=== PATIENT | female | born 1955 | race Caucasian/White ===

== ENCOUNTER 2019-12-18 08:22 | Outpatient (CLI) | payer MEDICARE ==
--- NOTE | 2019-12-18 10:59 | MRI ---
MRI OF THE ABDOMEN WITH AND WITHOUT CONTRAST: INDICATION: History of abnormal CT examination. COMPARISON: Prior CT the abdomen and pelvis dated December 05, 2019. TECHNIQUE: Multiplanar multisequence MR images were obtained of the abdomen utilizing a liver mass protocol. TECHNIQUE: Patient received 12 cc of MultiHance. FINDINGS: Small hypodensity within the left hepatic lobe demonstrates T2 hypointensity and T1 hypointensity wit hout appreciable enhancement consistent with a tiny cyst. No additional focal hepatic lesion is evident. Gallbladder is normal-appearing. There is a prominent cystic mass centered within the superi or margin of the pancreatic head measuring 2.5 x 1.5 cm. The cystic mass appears to communicate with the distal common bile duct, particularly on image 28 and 27 of series 13. There are some mild e nhancing internal septations. No suspicious nodular enhancement is evident. No main pancreatic ductal dilatation is evident. No lymphadenopathy is noted. The spleen is normal-appearing. No marrow signal abnormality is evident. Motion artifact limits evaluation of the coronal postcontrast series. No free fluid is identified. There is a very tiny cysts within both kidneys. IMPRESSION: 1. Multiloculated cystic abnormality in the pancreatic head appears to communicate with the distal co mmon bile duct and is suspicious for choledochal cyst. Alternatively differential considerations include a small serous cystadenoma or possibly an IPMN tumor. Would recommend consideration for ERCP to see if this truly does communicate with the distal common bile duct. 2. Small left hepatic lobe cyst. 3. Small bilateral renal cysts. Transcribed Date/Time: 12/18/2019 11:09 AM
== END 2019-12-18 08:23 | disposition home or self-care (01) ==
LOC: TBSIIMAG 08:22
PROVIDERS: ATTEND Internal Medicine Gastroenterology
DX: R16.0 Hepatomegaly, not elsewhere classified (principal); K86.89 Other specified diseases of pancreas; N28.1 Cyst of kidney, acquired; K76.89 Other specified diseases of liver
CPT/HCPCS: 74183

== ENCOUNTER 2021-05-02 10:45 | Outpatient (CLI) | payer MEDICARE ==
[2021-05-02 21:58] LABS: SARS-CoV-2 PCR by NAA Not Detected (NotDetected)
== END 2021-05-02 10:46 | disposition home or self-care (01) ==
LOC: LABBT 10:45
PROVIDERS: ATTEND Physician Assistant Medical
DX: Z01.812 Encounter for preprocedural laboratory examination (principal); K21.9 Gastro-esophageal reflux disease without esophagitis; K22.4 Dyskinesia of esophagus; K86.89 Other specified diseases of pancreas; Z20.822 Contact with and (suspected) exposure to COVID-19
CPT/HCPCS: U0003; U0005

== ENCOUNTER 2021-05-06 08:03 | Outpatient (CLI) | payer MEDICARE | END 2021-05-06 08:04 | disposition home or self-care (01) | LOC: RAD 08:03 | PROVIDERS: ATTEND Physician Assistant Medical | DX: K21.9 Gastro-esophageal reflux disease without esophagitis (principal); K22.4 Dyskinesia of esophagus; K86.89 Other specified diseases of pancreas | CPT/HCPCS: 74220 ==